=== PATIENT | male | born 2000 | race Caucasian/White ===

== ENCOUNTER 2022-08-29 23:15 | Outpatient (REF) | payer MEDICAID, SELFPAY ==
[2022-08-31 11:25] LABS: COVID-19 RT-PCR UVMMC Result Negative (Negative)
== END 2022-08-29 23:16 | disposition home or self-care (01) ==
LOC: LBN 23:15
PROVIDERS: Visit Provider Physician Assistant Medical
DX: Z20.822 Contact with and (suspected) exposure to COVID-19 (principal); B34.9 Viral infection, unspecified
CPT/HCPCS: U0003; 87070

== ENCOUNTER 2022-09-01 00:09 | Emergency (ER) | payer MEDICAID, SELFPAY ==
--- NOTE | 2022-09-01 00:30 | DI.RAD_ITS ---
Exam(s) XR PORTABLE CHEST AP EXAM: XR PORTABLE CHEST AP CLINICAL HISTORY: PUI, cough TECHNIQUE: 2D digital imaging was performed. COMPARISON: No exams were available for comparison FINDINGS: LUNGS: Clear. No pleural abnormality seen. HEART: Normal size. AORTA: Normal diameter. BONES: Unremarkable for age. Soft tissues: Unremarkable. IMPRESSION: No acute findings. DATA REPOSITORY: RADIATION DOSE DELIVERED:
--- NOTE | 2022-09-01 00:38 | ED.GENADUL_ITS ---
Discharge Plan Disposition Patient Disposition: Home Condition: Improving Discharge Details Clinical Impression: Influenza A Primary Care Provider: Margarita Mast ED Provider: Jasper Moon Home Meds and New Rx's Prescriptions: Continued cetirizine 10 MG tablet 10 mg PO DAILY Qty: 30 Rx Instructions: 1 tab po daily in the evening fluticasone propionate [Flonase Allergy Relief] 9.9 ML spray,suspension 1 spray NS DAILY PRNQty: 1 Discharge Instructions Instructions: Influenza (ED) Additional Instructions: Home to rest this evening. Small, frequent sips of fluids to maintain good hydration. Tylenol and ibuprofen as needed for pain. You may use the provided codeine-based cough syrup this evening. Return for any acute concern. Medical Decision Making This is a 22-year-old male who presents with 4 to 5 days of cough, congestion, fever, body ache. Was having some difficulty breathing at home. On exam the patient is oxygenating normally. His differential diagnosis includes viral syndrome, influenza, pneumonitis, bronchitis. Chest x-ray without acute disease. Patient improved following ibuprofen, oral fluids, and antitussive. He is positive for influenza A. He is outside the window for the use of Tamiflu. He is stable and appropriate discharge to home with conservative management in the outpatient setting. HPI General Mode of arrival: ambulatory . Date/Time Provider Initiated Documentation: 09/01/22 00:10 . Limitations to Documentation: no limitations . Information obtained by: patient . History of Present Illness 22 year old M presents to the emergency department with the chief complaint of Fever, cough, body ache, described as moderate, Quality is described as dull, and is localized to the chest. Patient reports no radiation. Patient started experiencing this day(s) and it has been intermittent. No relieving factors improve symptom(s), No exacerbating factors reported . Patient notes cough, fever/chills and shortness of breath; denies chest pain. Patient did receive the following treatments prior to arrival, other (Tylenol) Related Data Home Medications Medication Instructions Recorded Confirmed cetirizine 10 mg tablet 10 mg PO DAILY #30 tab-caps 05/09/16 09/01/22 fluticasone propionate 50 1 spray NS DAILY PRN ##1 05/09/16 09/01/22 mcg/actuation nasal spray,suspension (Flonase Allergy Relief) Allergies Allergy/AdvReac Type Severity Reaction Status Date / Time ENVIRONMENTAL ALLERGY AdvReac Mild Uncoded 09/01/22 00:45 Review of Systems Narrative: 6 systems reviewed and otherwise not negative PFSH All Active Problems (Updated 09/01/22 @ 01:42 by Jasper Moon MD) Influenza A (Acute) Esotropia (Acute) followed by optometry r eye 2/20 Healthy adult (Acute) Allergic rhinitis (Acute) Surgical History Appendectomy Family History Mother Healthy adult on routine physical examination Essential hypertension Father Diabetes Essential hypertension Heart disease Hyperlipidemia Other Essential hypertension MGM Hyperlipidemia MGM Myocardial infarction MGF Neoplasm maternal side Asthma maternal side, MGGF Social History Smoking/Tobacco Use Status: Never Second Hand Exposure: Yes (MOM'S BOYFRIEND) Smoking risk assessment performed?: Yes Alcohol Intake: current Alcohol type: beer Drug use: Never Substance use type: does not use Household members: family and other Details: MOM AND HER BOYFRIEND, BOYFRIENDS DAUGHTER AND HER KIDS Pets and animals: Yes Pets and animals: dog(s), iguana(s) and other Details: DUCKS, GEESE Do you feel safe at home: Yes Do you feel safe in your relationship?: Yes Exam Narrative Exam Narrative: GEN: awake, alert, oriented 3. Pleasant, well groomed, interactive. HEAD: Normocephalic, atraumatic ENT: Mucous membranes moist, oropharynx unremarkable, External ear exam unremarkable EYES: PERRL, EOMI NECK: Full ROM, no BLANKA, no menigismus CHEST/RESP: Nontender, diminished but clear bilaterally CARDIOVASCULAR: RRR, no murmur, rub mathieu. 2+ Rad pulse bilateral ABDOMEN: Soft, nontender, no mass. +Bowel sounds EXT: Full ROM, no edema, no rash Neuro: Grossly normal neurologic exam, conversant, interactive. Psych: Speech fluent, thoughts congruent, affect normal
[2022-09-01] MEDS: guaiFENesin/CODEINE PHOSPHATE 10 ML CUP PO ×2 (00:47→01:55)
[2022-09-01] MEDS: Ibuprofen 800 MG TAB PO (00:47)
[2022-09-01 00:48] VITALS: BP 145/81; PULSE 111; RESP 24; TEMP 38; O2SAT 97
--- NOTE | 2022-09-01 01:27 | DI.VRAD_ITS ---
PROCEDURE INFORMATION: Exam: XR Chest Exam date and time: 09/01/2022 12:46 AM Age: 22 years old Clinical indication: Shortness of breath TECHNIQUE: Imaging protocol: Radiologic exam of the chest. Views: 1 view. COMPARISON: No relevant prior studies available. FINDINGS: Lungs: Unremarkable. No consolidation. Pleural spaces: Unremarkable. No pleural effusion. No pneumothorax. Heart/Mediastinum: Unremarkable. No cardiomegaly. Bones/joints: Unremarkable. IMPRESSION: No acute findings. Dictated and Authenticated by: Garcia Grimaldo MD. Ordering:GEETA Hutchinson MD
[2022-09-01 01:29] LABS: COVID-19 PCR Negative (Negative); Influenza A PCR Positive (Negative); Influenza B PCR Negative (Negative); RSV PCR Negative (Negative)
[2022-09-01 01:37] LABS: Source Nasopharynx
[2022-09-01 01:55] VITALS: BP 122/58; PULSE 95; RESP 24; TEMP 37; O2SAT 96
== END 2022-09-01 01:59 | disposition home or self-care (01) ==
PROVIDERS: Emergency Provider Emergency Medicine; PCP Nurse Practitioner Family
DX: J10.1 Influenza due to other identified influenza virus with other respiratory manifestations (principal); Z20.822 Contact with and (suspected) exposure to COVID-19
CPT/HCPCS: 87637; 99283; 71045; 99284

== ENCOUNTER → 2024-05-15 22:17 | Emergency (ER) | payer MEDICAID, SELFPAY ==
[2024-05-15 22:21] VITALS: BP 159/116; PULSE 94; RESP 16; TEMP 36.3; O2SAT 98
--- NOTE | 2024-05-15 22:24 | ED.GENADUL_ITS ---
Discharge Plan Disposition Patient Disposition: Home Condition: Good Discharge Details Clinical Impression: Abscess of right axilla Primary Care Provider: Margarita Mast ED Provider: Tanvir Thomas Meds and New Rx's Prescriptions: New doxycycline hyclate 100 mg capsule 100 mg PO BID Qty: 20 0RF Discharge Instructions Instructions: Doxycycline Additional Instructions: You were seen in the ED for axillary pain and swelling. This may be the beginning stage of an abscess. At this point it does not warrant incision. Recommend hot compresses, ibuprofen, antibiotic as we discussed. Will refer you to the surgical clinic for follow-up, call on Friday. Return to ED for increased pain, swelling, fever, other concerns. Stand Alone Forms: Work Release Referrals: [facility] [Provider Group] - None HPI General Mode of arrival: ambulatory . Date/Time Provider Initiated Documentation: 05/15/24 22:24 . Limitations to Documentation: no limitations . Information obtained by: patient and RN notes reviewed . HPI Narrative: Patient presents to ED with right armpit pain and swelling. Patient reports that a couple days ago he noticed what he thought was just a small pimple. He has had what he describes as pimples in his axillary region on and off. Over the course of the last 24 hours the area has become more painful, little more swollen, larger and red. He has noticed a little bump in the posterior aspect of his axilla. He denies any fever. He denies feeling unwell otherwise. Denies any drug use, significant past medical history, medications, allergies. Related Data Home Medications ?Medication ?Instructions ?Recorded ?Confirmed doxycycline hyclate 100 mg capsule 100 mg PO BID #20 caps 05/15/24 Previous Rx's ?Medication ?Instructions ?Recorded doxycycline hyclate 100 mg capsule 100 mg PO BID #20 caps 05/15/24 Allergies Allergy/AdvReac Type Severity Reaction Status Date / Time ENVIRONMENTAL ALLERGY AdvReac Mild Unknown Uncoded 05/15/24 22:26 General [place]: 3 Review of Systems Narrative: Per HPI Exam Narrative Exam Narrative: Const: Obese male in NAD. VS per triage. HEENT: NC/AT. Normal facial exam. Neck: Supple. Trachea midline. Lungs: Normal respiratory effort. Neuro: A+O x 3. Normal speech, mentation, gait. Cranial nerves II - XII grossly intact. No gross motor or sensory deficit. Ext: No C/C/E. Skin: 8 to 10 mm x 3 to 4 mm erythematous slightly raised plaque lesion with central indentation. Very tender to touch. Not fluctuant at all. This is anteriorly located in the right axilla. Posteriorly there is a pea-sized firm and mildly tender mass. Medical Decision Making Patient presenting to ED with right axillary pain and redness. The firm tender mass posteriorly is most likely a lymph node. The lesion in the anterior axillary region may be an early abscess versus beginning stage of hidradenitis suppurativa. It is not amendable to I&D. Will start patient on doxycycline, warm compresses, ibuprofen and referred to surgical clinic, call on Friday for follow-up. Return precautions discussed, specifically increasing pain and swell ing which would suggest a developing abscess that may be better amendable to I&D. PFSH All Active Problems (Updated 05/15/24 @ 22:54 by Tanvir Thomas MD) Abscess of right axilla (Acute) Esotropia (Acute) followed by optometry r eye 11/04 Healthy adult (Acute) Allergic rhinitis (Acute) Surgical History Appendectomy Family History Mother Healthy adult on routine physical examination Essential hypertension Father Diabetes Essential hypertension Heart disease Hyperlipidemia Other Essential hypertension MGM Hyperlipidemia MGM Myocardial infarction MGF Neoplasm maternal side Asthma maternal side, MGGF Social History Smoking/Tobacco Use Status: Never Second Hand Exposure: Yes (MOM'S BOYFRIEND) Smoking risk assessment performed?: Yes Alcohol Intake: current Alcohol Intake frequency: a few times a week Alcohol type: beer Drug use: Never Substance use type: does not use Household members: family and other Details: MOM AND HER BOYFRIEND, BOYFRIENDS DAUGHTER AND HER KIDS Housing: apartment Pets and animals: Yes Pets and animals: dog(s), iguana(s) and other Details: DUCKS, GEESE Do you feel safe at home: Yes Do you feel safe in your relationship?: Yes
[2024-05-15 22:56] VITALS: BP 145/77; PULSE 92; RESP 20; TEMP 36.8; O2SAT 97
[2024-05-15] MEDS: Doxycycline Hyclate 100 MG CAP PO (23:08)
[2024-05-15] MEDS: Ibuprofen 600 MG TAB PO (23:08)
--- NOTE | 2024-05-16 19:44 | NUR.NOTE ---
Pt placed on care management referral list to establish primary care as soon as possible. Referral faxed to [facility].
== END | disposition home or self-care (01) ==
LOC: ER 22:55 → RED 23:10
PROVIDERS: Emergency Provider Emergency Medicine; PCP Nurse Practitioner Family
DX: L02.411 Cutaneous abscess of right axilla (principal)
CPT/HCPCS: 99283

== ENCOUNTER 2024-12-17 22:11 | Outpatient (REF) | payer SELFPAY | END 2024-12-17 22:12 | disposition home or self-care (01) | LOC: LBN 22:11 | PROVIDERS: PCP Nurse Practitioner Family; Visit Provider Physician Assistant Medical | DX: J02.9 Acute pharyngitis, unspecified (principal) | CPT/HCPCS: 87070 ==

== ENCOUNTER 2025-09-11 11:34 | Observation (INO) | payer SELFPAY ==
[2025-09-11] VITALS (9 sets, daily range): BP systolic 116–139; BP diastolic 63–88; PULSE 81–129; RESP 16–18; TEMP 36.4–38.3; O2SAT 96–100
--- NOTE | 2025-09-11 13:15 | DI.CT_ITS ---
Exam(s) CT ABDOMEN PELVIS W EXAM: CT ABDOMEN PELVIS W CLINICAL HISTORY: epigastric pain, intractable vomiting. TECHNIQUE: Imaging Protocol: Axial computed tomography images with coronal and sagittal reformatted images were created and reviewed CONTRAST MATERIAL: Intravenous: Omnipaque-350 100cc Oral: None COMPARISON: No exams were available for comparison FINDINGS: VISUALIZED LUNG BASES: No nodules nor pleural effusions evident. ABDOMEN: There is no ascites. LIVER: Liver is hypodense implying steatosis. There no discrete focal hepatic lesions evident. No dilated intrahepatic ducts. GALLBLADDER/BILIARY: No obvious gallbladder pathology. CBD is not dilated. PANCREAS: No evidence of pancreatic mass nor dilatation of the pancreatic duct. SPLEEN: The spleen is enlarged measuring 14.5 cm craniocaudal. There are no distinct focal splenic lesions. The splenic and portal veins are patent. ADRENALS: There are no significant adrenal masses. KIDNEYS:No cysts evident. No solid renal masses. No calculi nor hydronephrosis.. ABDOMINAL AORTA: Abdominal aorta is not enlarged. LYMPH NODES:There is no retroperitoneal nor paraaortic adenopathy. ABDOMINAL WALL: No evidence of significant anterior abdominal wall nor inguinal hernia. GI: There is fluid in the stomach and throughout the multiple small bowel loops. No distinct transition point. Fat halo sign noted in the terminal ileum. PELVIS: GI: Appendix is surgically absent. The large bowel also contains some fluid. There is no significant diverticular disease in the colon. LYMPH NODES: There is no intrapelvic nor inguinal adenopathy. REPRODUCTIVE: Prostate size upper normal. Seminal vesicles unremarkable. URINARY BLADDER: No calculi nor obvious masses evident OSSEOUS: No fractures and no significant osseous lesions. IMPRESSION: 1. Hepatic steatosis and mild splenomegaly. There are no specific focal lesions in the liver and spleen. 2. There is an enteritis pattern involving small and large bowel. No true bowel obstruction. No free air. No abscess. 3. The appendix is surgically absent. Report called by myself to ER provider 09/11/2025 at 3:45 p.m. RADIATION DOSE DELIVERED: 855.91mGy.cm Total DLP DATA REPOSITORY: All CT scans at this facility are submitted to the National Radiology Data Registry (NRDR) Dose Index Registry (DIR) with the [employer] (A[employer]). RADIATION OPTIMIZATION: All CT scans at this facility use at least one of these dose optimization techniques: automated exposure control; mA and/or kV adjustment per patient size (includes targeted exams where dose is matched to clinical indication); or iterative reconstruction.
--- NOTE | 2025-09-11 13:15 | RT.EKG_ITS ---
APPROVED REPORT Exam: Resting ECG Reason for Exam: upper ABD pain Patient Location: E HR:113 bpm ECG Measurements Heart Rate 113 AXIS VT 138 P 26 QRSd 85 QRS 38 QT 317 T -5 QTc 435 Conclusion Sinus tachycardia...rate> 99 No Occlusion MN
--- NOTE | 2025-09-11 13:15 | DI.RAD_ITS ---
Exam(s) XR CHEST 2V PA LATERAL EXAM: XR CHEST 2V PA LATERAL CLINICAL HISTORY: central chest pain; indigestion. TECHNIQUE: 2D digital imaging was performed. COMPARISON: CR,XR XR PORTABLE CHEST AP from 09/01/[address] ABDOMEN PELVIS W from 09/11/2025 FINDINGS: 2 views: Heart size is normal. The mediastinum is not widened. Lungs are clear. No infiltrates nor pleural effusions. Mildly distended stomach IMPRESSION: No acute pulmonary findings.Somewhat distended stomach. No free air DATA REPOSITORY: RADIATION DOSE DELIVERED:
[2025-09-11 13:38] LABS: Glucose Negative (Negative)
[2025-09-11 13:54] LABS: C & S Indicated? Yes
[2025-09-11] MEDS: Ketorolac 15 MG/ML VIAL IVP (13:57)
[2025-09-11] MEDS: Ondansetron 4 MG/2 ML VIAL IVP ×2 (13:57→20:08)
[2025-09-11] MEDS: ACETAMINOPHEN 1,000 MG/100 ML BAG 400 MG IVPB (13:58)
[2025-09-11 13:59] LABS: Abs Immature Grans 0.04 10^3/uL (0.0-0.06); HCT 51.8 % (40.0-50.0); HGB 17.5 g/dL (13.5-17.5); Immature Grans % 0.3 %; MCH 29.4 pg (27.0-33.0); MCHC 33.8 % (32.0-36.0); MCV 87 fL (80-95); MPV 11.6 fL (8.0-11.0); Platelet Count 163 10^3/uL (130-400); RBC 5.96 10^6/uL (4.36-5.78); RDW 12.5 % (11.8-14.1); RDW-SD 39.3 fL; WBC 13.46 10^3/uL (4.4-10.8)
--- NOTE | 2025-09-11 14:06 | ED.GENADUL_ITS ---
Discharge Plan Disposition Patient Disposition: Admit to [facility] Condition: Stable Discharge Details Clinical Impression: Sepsis, Urinary tract infection Primary Care Provider: Margarita Mast ED Provider: Alirio Stein Home Meds and New Rx's Prescriptions: No Action doxycycline hyclate 100 mg capsule 100 mg PO BID Qty: 20 0RF HPI General Date/Time Provider Initiated Documentation: 09/11/25 12:56 . HPI Narrative: 25 year-old male presents to ED today by POV/ambulating with a chief complaint of nausea and vomiting since this morning, nausea started at 2 AM last night and vomiting started around 6 AM this morning, he is unable to keep anything down. Quality described as upper abdominal pain, nausea vomiting and diarrhea, no radiation to overt fever endorses chills/sweats, denies shortness of breath or chest pain, endorses burning sensation, denies chronic indigestion, denies black or bloody stools, denies coffee-ground emesis or hematemesis. Severity is described as severe. Palliating factors include nothing specific attempted. Provoking factors include nothing specific. Patient not anticoagulated. Related Data Home Medications ?Medication ?Instructions ?Recorded ?Confirmed doxycycline hyclate 100 mg capsule 100 mg PO BID #20 c aps 05/15/24 05/23/24 Previous Rx's ?Medication ?Instructions ?Recorded doxycycline hyclate 100 mg capsule 100 mg PO BID #20 c aps 05/15/24 Allergies Allergy/AdvReac Type Severity Reaction Status Date / Time ENVIRONMENTAL ALLERGY AdvReac Mild Unknown Uncoded 09/11/25 12:16 General Stated Complaint: Nausea/Vomit/Diar [place]: 3 Review of Systems All systems reviewed & are unremarkable except as noted in HPI and below Exam Narrative Exam Narrative: GENERAL APPEARANCE: Well-nourished, toxic, awake and alert, atraumatic, moderate acute distress. SKIN: Warm, pale, diaphoretic, intact, without rashes/lesions/ulcerations. HEAD: Normocephalic, atraumatic, normal hair distribution for gender/age. EYES: Normal conjunctiva, no exudates on lids/lashes. ENT: Nares patent, no circumoral cyanosis, no facial swelling NECK: Supple, trachea midline, painless cervical ROM. LUNGS/CHEST: Lungs CTA bilaterally-no rhonchi/rales/wheeze diffusely, non- labored respirations, normal A/P diameter, symmetrical expansion, no chest wall deformity HEART (CV/PV): Regular rate and rhythm without murmur, no peripheral edema, no JVD. ABDOMEN: Soft, non-distended, no guarding, exquisite epigastric and right upper quadrant tenderness with positive Emmanuel sign, no CVA tenderness percussion bilaterally, no lower abdominal tenderness. MSK: Normal ROM, no swelling/deformity to bilateral UEs or LEs, moving all extremities without weakness, no cyanosis, spine midline without tenderness, normal curvature. NEURO: Mental Status AAOx4 - alert to person, place, time, events No facial droop, no forehead involvement. Motor: No focal weakness Sensory: sensation intact to light touch globally. Gait normal: patient ambulated without ataxia into ED room. PSYCH: euthymic, cooperative, pleasant, appropriate speech Course Vital Signs Vital signs: Vital Signs Temperature 36.8 C 09/11/25 12:11 Pulse 129 H 09/11/25 12:11 Respiratory Rate 18 09/11/25 12:11 Blood Pressure 133/88 09/11/25 12:11 Pulse Oximetry 96 09/11/25 12:11 Temperature 36.8 C 09/11/25 12:15 Temperature Source Oral 09/11/25 12:15 Pulse 129 H 09/11/25 12:15 Respiratory Rate 18 09/11/25 12:15 Blood Pressure 133/88 09/11/25 12:15 Blood Pressure Position Sitting 09/11/25 12:15 Pulse Oximetry 96 09/11/25 12:15 Oxygen Delivery Method Room Air 09/11/25 12:11 Oxygen Flow Rate 0 09/11/25 12:11 Pain Level 7 09/11/25 12:15 Lab/Test Results Lab/Test Results: 09/11/25 12:20 Urine - Reflex from Ua Urine Culture - Pending 09/11/25 13:21 Blood Blood Culture - Pending 09/11/25 13:21 Blood Blood Culture - Pending Laboratory Tests Range/Units 09/11/25 09/11/25 12:20 13:50 WBC (4.4-10.8) 10^3/uL 13.46 H RBC (4.36-5.78) 10^6/uL 5.96 H Hgb (13.5-17.5) g/dL 17.5 Hct (40.0-50.0) % 51.8 H MCV (80-95) fL 87 MCH (27.0-33.0) pg 29.4 MCHC (32.0-36.0) % 33.8 RDW (11.8-14.1) % 12.5 Plt Count (130-400) 10^3/uL 163 MPV (8.0-11.0) fL 11.6 H Immature Gran % % 0.3 Neutrophils % % 93.7 Lymphocytes % % 1.7 Monocytes % % 4.0 Eosinophils % % 0.1 Basophils % % 0.2 Nucleated RBC % (0.0-0.3) % 0.0 Absolute Neutrophils (1.2-6.7) 10^3/uL 12.61 H Absolute Lymphocytes (1.2-3.4) 10^3/uL 0.23 L Absolute Monocytes (0.1-0.8) 10^3/uL 0.54 Absolute Eosinophils (0.0-0.7) 10^3/uL 0.01 Absolute Basophils (0.0-0.2) 10^3/uL 0.03 VBG Lactate Cancelled Sodium Cancelled Potassium Cancelled Chloride Cancelled Carbon Dioxide Cancelled Anion Gap Cancelled BUN Cancelled Creatinine Cancelled Est GFR (CKD-EPI 2020) Cancelled Glucose Cancelled Calcium Cancelled Magnesium Cancelled Total Bilirubin Cancelled AST Cancelled ALT Cancelled Alkaline Phosphatase Cancelled Troponin I Cancelled Total Protein Cancelled Albumin Cancelled Lipase Cancelled Urine Color (Yellow) [place] Urine Clarity (Clear) Cloudy Urine pH (5-8) 5.5 Ur Specific [place] (1.005-1.025) >= 1.030 H Urine Protein (Neg-Trace) mg/dL >=300 H Urine Ketones (Negative) mg/dL 80 H Urine Blood (Negative) Small H Urine Nitrite (Negative) Positive H Urine Bilirubin (Negative) Moderate H Urine Urobilinogen (Up to 0.2) mg/dL 0.2 Ur Leukocyte Esterase (Negative) Negative Urine RBC Not Applicable Urine WBC Not Applicable Ur Epithelial Cells Not Applicable Urine Crystals (Negative) HPF Many Amorphous Urine Bacteria Not Applicable Urine Mucus Not Applicable Ur Culture Indicated? Yes Urine Glucose (Negative) mg/dL Negative Medical Decision Making This dictation utilizes [id number] dictation software and may contain unedited grammatical errors. 25 year-old male presents to ED today by POV/ambulating with a chief complaint of nausea and vomiting since this morning, nausea started at 2 AM last night and vomiting started around 6 AM this morning, he is unable to keep anything down. Quality described as upper abdominal pain, nausea vomiting and diarrhea, no radiation to overt fever endorses chills/sweats, denies shortness of breath or chest pain, endorses burning sensation, denies chronic indigestion, denies black or bloody stools, denies coffee-ground emesis or hematemesis. Severity is described as severe. Palliating factors include nothing specific attempted. Provoking factors include nothing specific. Patients' medical history: Status post appendectomy, allergic rhinitis. Family and social history: Denies any known toxic food ingestion, denies heavy EtOH use or recent EtOH use, denies IVDU, no recent travel or sick contacts. Pertinent exam findings / vital signs include epigastric tenderness with Emmanule sign, no rebound tenderness, no lower abdominal tenderness, no CVA tenderness to percussion bilaterally, benign cardiopulmonary exam, tachycardic on arrival and diaphoretic. Differential / pathologies of concern include sepsis, enteritis, biliary colic, UTI, pyelonephritis, SBO, colitis, gastritis. Diagnostic studies of: - CBC, CMP, lactate, lipase, magnesium, UA, blood cultures, CT ABD/pelvis with contrast, x-ray chest, EKG. - EKG shows sinus tachycardia at 113 bpm with P waves followed by narrow complex QRS with normal axis, poor R wave progression, no T wave abnormalities, no ST changes, normal QT QTc - CBC shows leukocytosis with white count of 13.46 - Lactate 3.1 - CMP with mildly elevated bilirubin at 2.2, reflexed to direct bilirubin which is 0.7 - Magnesium lower limit of normal at 1.6 - Troponin negative - Lipase within normal limits - UA shows UTI with positive nitrates, the micro has interference, culture pending - Blood cultures pending - X-ray chest shows no acute findings and a distended stomach - CT of the abdomen and pelvis shows hepatic steatosis and mild splenomegaly and enteritis, no surgical concerns Interventions of: -1 g IV Tylenol, 50 mg IV Toradol, 4 mg IV Zofran, 1 L IVF NS, 2 g IV ceftriaxone. -Discussed with hospitalist Dr. Hussein - accepted for admission at 1600. ED Course/Assessment/Plan: 25-year-old male presents with abdominal complaint of nausea vomiting and diarrhea with upper abdominal pain and burning sensation, he has tachycardia, leukocytosis and a lactic acidosis indicating likely sepsis, source of infection is a UTI he also has enteritis pattern, he did receive IV ceftriaxone here, his vitals did normalize with fluids Tylenol Toradol and Zofran and he has no intractable vomiting, he has hepatic steatosis with mild elevation of bilirubin at 2.2 and direct bilirubin of 0.7 not convincing for severe obstructive pattern. Patient will be admitted for sepsis with source of urinary tract infection given ceftriaxone Disposition of Sepsis, Urinary Tract Infection. Patient verbalized understanding of the plan and return to ED criteria and engaged in shared decision making. Medical Records Medical records reviewed: Yes I reviewed the patient's medical records. Imaging Data Radiologic Study: Attestation: I personally reviewed and interpreted this imaging study as follows: Imaging: X-Ray Radiologist's impression: EXAM: XR CHEST 2V PA LATERAL CLINICAL HISTORY: central chest pain; indigestion. TECHNIQUE: 2D digital imaging was performed. COMPARISON: CR,XR XR PORTABLE CHEST AP from 09/01/[address] ABDOMEN PELVIS W from 09/11/2025 FINDINGS: 2 views: Heart size is normal. The mediastinum is not widened. Lungs are clear. No infiltrates nor pleural effusions. Mildly distended stomach IMPRESSION: No acute pulmonary findings.Somewhat distended stomach. No free air Radiologic Study #2: Attestation: I personally reviewed and interpreted this imaging study as follows: Imaging: CT Scan Radiologist's impression: EXAM: CT ABDOMEN PELVIS W CLINICAL HISTORY: epigastric pain, intractable vomiting. TECHNIQUE: Imaging Protocol: Axial computed tomography images with coronal and sagittal reformatted images were created and reviewed CONTRAST MATERIAL: Intravenous: Omnipaque-350 100cc Oral: None COMPARISON: No exams were available for comparison FINDINGS: VISUALIZED LUNG BASES: No nodules nor pleural effusions evident. ABDOMEN: There is no ascites. LIVER: Liver is hypodense implying steatosis. There no discrete focal hepatic lesions evident. No dilated intrahepatic ducts. GALLBLADDER/BILIARY: No obvious gallbladder pathology. CBD is not dilated. PANCREAS: No evidence of pancreatic mass nor dilatation of the pancreatic duct. SPLEEN: The spleen is enlarged measuring 14.5 cm craniocaudal. There are no distinct focal splenic lesions. The splenic and portal veins are patent. ADRENALS: There are no significant adrenal masses. KIDNEYS:No cysts evident. No solid renal masses. No calculi nor hydronephrosis.. ABDOMINAL AORTA: Abdominal aorta is not enlarged. LYMPH NODES:There is no retroperitoneal nor paraaortic adenopathy. ABDOMINAL WALL: No evidence of significant anterior abdominal wall nor inguinal hernia. GI: There is fluid in the stomach and throughout the multiple small bowel loops. No distinct transition point. Fat halo sign noted in the terminal ileum. PELVIS: GI: Appendix is surgically absent. The large bowel also contains some fluid. There is no significant diverticular disease in the colon. LYMPH NODES: There is no intrapelvic nor inguinal adenopathy. REPRODUCTIVE: Prostate size upper normal. Seminal vesicles unremarkable. URINARY BLADDER: No calculi nor obvious masses evident OSSEOUS: No fractures and no significant osseous lesions. IMPRESSION: 1. Hepatic steatosis and mild splenomegaly. There are no specific focal lesions in the liver and spleen. 2. There is an enteritis pattern involving small and large bowel. No true bowel obstruction. No free air. No abscess. 3. The appendix is surgically absent. Report called by myself to ER provider 09/11/2025 at 3:45 p.m. Lab Data Lab results reviewed: Yes I reviewed the patient's lab results. Labs: 09/11/25 14:10 Blood Blood Culture - Pending 09/11/25 14:21 Blood Blood Culture - Pending 09/11/25 12:20 Urine - Reflex from Ua Urine Culture - Pending Laboratory Tests Range/Units 09/11/25 09/11/25 09/11/25 12:20 13:50 14:21 WBC (4.4-10.8) 10^3/uL 13.46 H RBC (4.36-5.78) 10^6/uL 5.96 H Hgb (13.5-17.5) g/dL 17.5 Hct (40.0-50.0) % 51.8 H MCV (80-95) fL 87 MCH (27.0-33.0) pg 29.4 MCHC (32.0-36.0) % 33.8 RDW (11.8-14.1) % 12.5 Plt Count (130-400) 10^3/uL 163 MPV (8.0-11.0) fL 11.6 H Immature Gran % % 0.3 Neutrophils % % 93.7 Lymphocytes % % 1.7 Monocytes % % 4.0 Eosinophils % % 0.1 Basophils % % 0.2 Nucleated RBC % (0.0-0.3) % 0.0 Absolute Neutrophils (1.2-6.7) 10^3/uL 12.61 H Absolute Lymphocytes (1.2-3.4) 10^3/uL 0.23 L Absolute Monocytes (0.1-0.8) 10^3/uL 0.54 Absolute Eosinophils (0.0-0.7) 10^3/uL 0.01 Absolute Basophils (0.0-0.2) 10^3/uL 0.03 VBG Lactate Cancelled 3.1 H* Sodium Cancelled 139 Potassium Cancelled 4.1 Chloride Cancelled 105 Carbon Dioxide Cancelled 23.9 Anion Gap Cancelled 10.1 BUN Cancelled 16 Creatinine Cancelled 0.91 Est GFR (CKD-EPI 2020) Cancelled 101.84 Glucose Cancelled 155 H Calcium Cancelled 9.9 Magnesium Cancelled 1.6 Total Bilirubin Cancelled 2.2 H AST Cancelled 31 ALT Cancelled 57 H Alkaline Phosphatase Cancelled 86 Troponin I Cancelled < 3 Total Protein Cancelled 8.7 H Albumin Cancelled 5.0 Lipase Cancelled 30 Urine Color (Yellow) [place] Urine Clarity (Clear) Cloudy Urine pH (5-8) 5.5 Ur Specific [place] (1.005-1.025) >= 1.030 H Urine Protein (Neg-Trace) mg/dL >=300 H Urine Ketones (Negative) mg/dL 80 H Urine Blood (Negative) Small H Urine Nitrite (Negative) Positive H Urine Bilirubin (Negative) Moderate H Urine Urobilinogen (Up to 0.2) mg/dL 0.2 Ur Leukocyte Esterase (Negative) Negative Urine RBC Not Applicable Urine WBC Not Applicable Ur Epithelial Cells Not Applicable Urine Crystals (Negative) HPF Many Amorphous Urine Bacteria Not Applicable Urine Mucus Not Applicable Ur Culture Indicated? Yes Urine Glucose (Negative) mg/dL Negative PFSH All Active Problems (Updated 09/11/25 @ 16:40 by RUPERTO Blank) Urinary tract infection (Acute) Sepsis (Acute) Esotropia (Acute) followed by optometry r eye 11/04 Healthy adult (Acute) Allergic rhinitis (Acute) Surgical History Appendectomy Family History Mother Healthy adult on routine physical examination Essential hypertension Father Diabetes Essential hypertension Heart disease Hyperlipidemia Other Essential hypertension MGM Hyperlipidemia MGM Myocardial infarction MGF Neoplasm maternal side Asthma maternal side, MGGF Social History Smoking/Tobacco Use Status: Never Second Hand Exposure: Yes (MOM'S BOYFRIEND) Smoking risk assessment performed?: Yes Alcohol Intake: current Alcohol Intake frequency: a few times a week Alcohol type: beer Drug use: Never Substance use type: does not use Household members: family and other Details: MOM AND HER BOYFRIEND, BOYFRIENDS DAUGHTER AND HER KIDS Housing: apartment Pets and animals: Yes Pets and animals: dog(s), iguana(s) and other Details: DUCKS, GEESE Do you feel safe at home: Yes Do you feel safe in your relationship?: Yes PAWSS Have you Been Recently Intoxicated or Drunk Within the Last 30 days?: No Have you Ever Experienced Previous Episodes of Alcohol Withdrawal?: No Have you ever Experienced Withdrawal Seizures?: No Have you ever Experienced Delirium Tremens(DT)s?: No Have you ever undergone Alcohol Rehabilitation Treatment (i.e, inpt ot outpatient treatment programs)?: No Have you ever Experienced Blackouts?: No Have you ever Combined Alcohol with other Downers within the last 90 days?: No Have you ever Combined Alcohol with any other Substance of Abuse during the last 90 days?: No Positive Blood Alcohol level on Presentation? [PCS.BAL]: No Evidence of Increased Autonomic Activity (i.e. HR>120, tremor, sweating, agitation, nausea)?: No Result: 0
[2025-09-11] MEDS: Normal Saline Flush 10 ML SYR IVP (14:39)
[2025-09-11] MEDS: Normal Saline - Diluent 50 ML VIAL IJ (14:39)
[2025-09-11] MEDS: Omnipaque 350 MG/ML 100 ML BTL IJ (14:39)
[2025-09-11 14:55] LABS: ALT 57 U/L (10-49); AST 31 U/L (<34); Albumin 5.0 g/dL (3.2-5.0); Alkaline Phosphatase 86 U/L (46-116); Anion Gap 10.1 mmol/L (3-11); BUN 16 mg/dL (9-23); Bilirubin, Total 2.2 mg/dL (0.2-1.2); CO2 23.9 mmol/L (20.0-31.0); Calcium 9.9 mg/dL (8.3-10.6); Chloride 105 mmol/L (98-107); Glucose 155 mg/dL (74-106); Lipase 30 U/L (<53); Magnesium 1.6 mg/dL (1.6-2.6); Potassium 4.1 mmol/L (3.5-5.1); Sodium 139 mmol/L (136-145); Total Protein 8.7 g/dL (5.7-8.2)
[2025-09-11 14:58] LABS: Troponin I < 3 ng/L (<54)
[2025-09-11] MEDS: cefTRIAXone 2 GM/50 ML BAG IVPB (15:05)
[2025-09-11] MEDS: Normal Saline 1,000 ML 1000 ML IV (15:05)
[2025-09-11 15:39] LABS: Bilirubin, Direct 0.7 mg/dL (<=0.3)
--- NOTE | 2025-09-11 17:21 | W.PM.HP.N ---
Date of service: 09/11/25 Time of Service: 17:00 Assessment and Plan Assessment and plan (1) Hypovolemia dehydration: Status: Acute Assessment and plan: Volume depletion due to nausea/vomiting Protein and ketones in urine, likely developing KEYANA Fluid boluses given in ED, will continue maintenance LR Anticipate improvement in 1-2 nights (2) Enteritis: Status: Acute Assessment and plan: More likely viral enteritis than bacterial infection given timing of onset Diet as tolerated (3) Abnormal urinalysis: Status: Acute Assessment and plan: UA suggestive of dehydration, possible UTI OK to continue ceftriaxone pending urine culture given severity of symptoms History of Present Illness History of Present Illness Chief Complaint: nausea and vomiting Narrative: Duran Cerda is a 25 year old man presenting September 11 after 12 hours of nausea and vomiting. He has been unable to tolerate any PO intake on day of presentation. He has abdominal pain that is above the navel, hurts when he vomits. He does not recall being around anyone who is sick. No chest pain, no SOB. In the ED he was tachycardic HR 129, vitals otherwise unremarkable. EKG with sinus tachycardia. CT abdomen/pelvis showing hepatic steatosis and mild splenomegaly, likely enteritis, absent appendix. CXR without pulmonary disease, stomach is distended. Neutrophilic leukocytosis 13.46. Lactic acidosis 3.1. Elevated glucose 155. Elevated bilirubin, predominantly indirect. Urine with heavy protein, ketones, nitrites, sent for culture. He was given anti-emetics and non-narcotic pain medicine, IV fluids, and started on ceftriaxone. PMH includes obesity BMI 41.6. PFSH All Active Problems (Updated 09/11/25 @ 21:07 by Anthony Hussein MD) Hypovolemia dehydration (Acute) Abnormal urinalysis (Acute) Enteritis (Acute) Urinary tract infection (Acute) Sepsis (Acute) Esotropia (Acute) followed by optometry r eye 11/04 Healthy adult (Acute) Allergic rhinitis (Acute) Surgical History Appendectomy Family History Mother Healthy adult on routine physical examination Essential hypertension Father Diabetes Essential hypertension Heart disease Hyperlipidemia Other Essential hypertension MGM Hyperlipidemia MGM Myocardial infarction MGF Neoplasm maternal side Asthma maternal side, MGGF Social History Smoking/Tobacco Use Status: Never Second Hand Exposure: Yes (MOM'S BOYFRIEND) Smoking risk assessment performed?: Yes Alcohol Intake: current Alcohol Intake frequency: a few times a week Alcohol type: beer Drug use: Never Substance use type: does not use Household members: family and other Details: MOM AND HER BOYFRIEND, BOYFRIENDS DAUGHTER AND HER KIDS Housing: apartment Pets and animals: Yes Pets and animals: dog(s), iguana(s) and other Details: DUCKS, GEESE Do you feel safe at home: Yes Do you feel safe in your relationship?: Yes Meds Allergies and Home Medications Allergies Allergy/AdvReac Type Severity Reaction Status Date / Time ENVIRONMENTAL ALLERGY AdvReac Mild Unknown Uncoded 09/11/25 12:16 Exam Narrative Exam Narrative: General: This is a pleasant, obese man in no distress HEENT: Normocephalic, atraumatic CV: RRR Resp: CTAB Abd: severe pain with any upper abdomen palpation, no CVAT MSK: voluntary motion x4 Neuro: awake, alert, no focal deficits Results Labs 09/11/25 13:50 09/11/25 14:21 Labs: Laboratory Results - last 24 hr 09/11/25 09/11/25 09/11/25 12:20 13:50 14:21 WBC 13.46 H RBC 5.96 H Hgb 17.5 Hct 51.8 H MCV 87 MCH 29.4 MCHC 33.8 RDW 12.5 Plt Count 163 MPV 11.6 H Immature Gran % 0.3 Neutrophils % 93.7 Lymphocytes % 1.7 Monocytes % 4.0 Eosinophils % 0.1 Basophils % 0.2 Nucleated RBC % 0.0 Absolute Neutrophils 12.61 H Absolute Lymphocytes 0.23 L Absolute Monocytes 0.54 Absolute Eosinophils 0.01 Absolute Basophils 0.03 VBG Lactate Cancelled 3.1 H* Sodium Cancelled 139 Potassium Cancelled 4.1 Chloride Cancelled 105 Carbon Dioxide Cancelled 23.9 Anion Gap Cancelled 10.1 BUN Cancelled 16 Creatinine Cancelled 0.91 Est GFR (CKD-EPI 2020) Cancelled 101.84 Glucose Cancelled 155 H Calcium Cancelled 9.9 Magnesium Cancelled 1.6 Total Bilirubin Cancelled 2.2 H Conjugated Bilirubin 0.7 H AST Cancelled 31 ALT Cancelled 57 H Alkaline Phosphatase Cancelled 86 Troponin I Cancelled < 3 Total Protein Cancelled 8.7 H Albumin Cancelled 5.0 Lipase Cancelled 30 Urine Color [place] Urine Clarity Cloudy Urine pH 5.5 Ur Specific [place] >= 1.030 H Urine Protein >=300 H Urine Ketones 80 H Urine Blood Small H Urine Nitrite Positive H Urine Bilirubin Moderate H Urine Urobilinogen 0.2 Ur Leukocyte Esterase Negative Urine RBC Not Applicable Urine WBC Not Applicable Ur Epithelial Cells Not Applicable Urine Crystals Many Amorphous Urine Bacteria Not Applicable Urine Mucus Not Applicable Ur Culture Indicated? Yes Urine Glucose Negative Last Vital Signs Temp 36.7 C 09/11/25 17:02 Pulse 90 09/11/25 17:02 Resp 16 09/11/25 14:05 BP 129/76 09/11/25 17:02 Pulse Ox 98 09/11/25 17:02 VTE Prohylaxis Risk Level: Low Risk Contraindications: None Prophylaxis: Patient ambulatory PAWSS Have you Been Recently Intoxicated or Drunk Within the Last 30 days?: No Have you Ever Experienced Previous Episodes of Alcohol Withdrawal?: No Have you ever Experienced Withdrawal Seizures?: No Have you ever Experienced Delirium Tremens(DT)s?: No Have you ever undergone Alcohol Rehabilitation Treatment (i.e, inpt ot outpatient treatment programs)?: No Have you ever Experienced Blackouts?: No Have you ever Combined Alcohol with other Downers within the last 90 days?: No Have you ever Combined Alcohol with any other Substance of Abuse during the last 90 days?: No Positive Blood Alcohol level on Presentation? [PCS.BAL]: No Evidence of Increased Autonomic Activity (i.e. HR>120, tremor, sweating, agitation, nausea)?: No Result: 0 Time Spent Time spent with Patient: 40-54 minutes Time was spent: preparing to see the patient(eg.review tests), obtaining and/or reviewing separately otained hiistory, ordering medications,tests, procedures, referring, communicating with other health before and after school daycare worker, indepentently interpreting results, counseling the patient and care coordination
[2025-09-11] MEDS: Ondansetron O.D.T. 4 MG TABEF PO (17:42)
[2025-09-11] MEDS: Acetaminophen 325 MG TAB 650 MG PO (20:08)
[2025-09-11 21:15] LABS: Cannabinoids THC Negative (Negative)
[2025-09-11] MEDS: Lactated Ringers 1,000 ML 150 ML IV (21:20)
[2025-09-12] MEDS: Lactated Ringers 1,000 ML 150 ML IV (03:43)
[2025-09-12 03:47] VITALS: PULSE 84; TEMP 36.5
[2025-09-12 06:55] LABS: Abs Immature Grans 0.03 10^3/uL (0.0-0.06); HCT 44.7 % (40.0-50.0); HGB 14.7 g/dL (13.5-17.5); Immature Grans % 0.4 %; MCH 28.5 pg (27.0-33.0); MCHC 32.9 % (32.0-36.0); MCV 87 fL (80-95); MPV 10.5 fL (8.0-11.0); Platelet Count 175 10^3/uL (130-400); RBC 5.16 10^6/uL (4.36-5.78); RDW 12.6 % (11.8-14.1); RDW-SD 40.1 fL; WBC 6.71 10^3/uL (4.4-10.8)
[2025-09-12 07:15] LABS: ALT 42 U/L (10-49); AST 27 U/L (<34); Albumin 4.2 g/dL (3.2-5.0); Alkaline Phosphatase 69 U/L (46-116); Anion Gap 7.6 mmol/L (3-11); BUN 12 mg/dL (9-23); Bilirubin, Total 1.8 mg/dL (0.2-1.2); CO2 27.4 mmol/L (20.0-31.0); Calcium 8.8 mg/dL (8.3-10.6); Chloride 106 mmol/L (98-107); Glucose 82 mg/dL (74-106); Magnesium 1.7 mg/dL (1.6-2.6); Potassium 3.5 mmol/L (3.5-5.1); Sodium 141 mmol/L (136-145); Total Protein 7.3 g/dL (5.7-8.2)
[2025-09-12 07:39] VITALS: BP 128/75; PULSE 84; RESP 17; TEMP 36.6; O2SAT 98
--- NOTE | 2025-09-12 08:26 | W.PC.ACHO ---
Registration Status: ADM ALESSIA Primary Language: Preferred Language: Cymro ED Information & Data Chief Complaint Nausea/Vomit/Diar 09/11/25 14:06 Triage Note patient state he got up at 09/11/25 12:11 2am this morning and he has been nausea, vomiting and diarrhea since this morning. patient state he is unable to keep anything down into his stomach. Reported having abdominal pain as well (Last Reviewed 05/23/24 @ 14:24 by Val Flores DO) Appendectomy Most Recent Vital Signs Temperature 36.6 C 09/12/25 07:39 Temperature Source Temporal Artery Scan 09/12/25 07:39 Pulse 84 09/12/25 07:39 Pulse Rhythm Regular 09/11/25 17:30 Respiratory Rate 17 09/12/25 07:39 Respiratory Effort Normal 09/11/25 17:30 Respiratory Depth Normal 09/11/25 17:30 Respiratory Pattern Normal 09/11/25 17:30 Blood Pressure 128/75 09/12/25 07:39 Blood Pressure Mean 92 09/12/25 07:39 Blood Pressure Position Sitting 09/11/25 12:15 Pulse Oximetry 98 09/12/25 07:39 Oxygen Delivery Method Room Air 09/12/25 07:39 Oxygen Flow Rate 0 09/12/25 07:39 Pain Level 0 09/12/25 07:39 Allergies ENVIRONMENTAL ALLERGY Adverse Reaction (Mild, Uncoded 09/11/25 12:16) Unknown Active Medications Generic Name Dose Route Start Last Admin Trade Name Freq PRN Reason Stop Dose Admin Acetaminophen 650 mg 09/11/25 16:53 09/11/25 20:08 Acetaminophen 325 Mg Tab PO 650 mg Q4H PRN PRN Administration Ringer's Solution 1,000 mls @ 150 mls/hr 09/11/25 21:15 09/12/25 03:43 IV 150 mls/hr INFUSION LUDIN Administration Iohexol 100 ml 09/11/25 14:45 09/11/25 14:39 Omnipaque 350 Mg/Ml 100 Ml Btl IJ 10/11/25 23:59 100 ml DIRECTED LUDIN Administration Ondansetron HCl 4 mg 09/11/25 17:34 09/11/25 20:08 Ondansetron 4 Mg/2 Ml Vial IVP 4 mg Q6H PRN PRN Administration Sodium Chloride 0 ml 09/11/25 14:38 09/11/25 14:39 Normal Saline Flush 10 Ml Syr IVP 10 ml PRN PRN Administration Sodium Chloride 50 ml 09/11/25 14:45 09/11/25 14:39 Normal Saline - Diluent 50 Ml Vial IJ 50 ml DIRECTED LUDIN Administration IV IV Catheter Type [Right Saline Lock Antecubital] IV Catheter Gauge [Right 20 Antecubital] Diagnostics 09/12/25 09/11/25 09/11/25 Range/Units 06:23 14:21 13:50 WBC 6.71 13.46 H (4.4-10.8) 10^3/uL RBC 5.16 5.96 H (4.36-5.78) 10^6/uL Hgb 14.7 D 17.5 (13.5-17.5) g/dL Hct 44.7 51.8 H (40.0-50.0) % MCV 87 87 (80-95) fL MCH 28.5 29.4 (27.0-33.0) pg MCHC 32.9 33.8 (32.0-36.0) % RDW 12.6 12.5 (11.8-14.1) % Plt Count 175 163 (130-400) 10^3/uL MPV 10.5 11.6 H (8.0-11.0) fL Immature Gran % 0.4 0.3 % Neutrophils % 73.1 93.7 % Lymphocytes % 14.5 1.7 % Monocytes % 10.9 4.0 % Eosinophils % 0.7 0.1 % Basophils % 0.4 0.2 % Nucleated RBC % 0.0 0.0 (0.0-0.3) % Absolute Neutrophils 4.90 12.61 H (1.2-6.7) 10^3/uL Absolute Lymphocytes 0.97 L 0.23 L (1.2-3.4) 10^3/uL Absolute Monocytes 0.73 0.54 (0.1-0.8) 10^3/uL Absolute Eosinophils 0.05 0.01 (0.0-0.7) 10^3/uL Absolute Basophils 0.03 0.03 (0.0-0.2) 10^3/uL VBG Lactate 3.1 H* Cancelled Sodium 141 139 Cancelled Potassium 3.5 4.1 Cancelled Chloride 106 105 Cancelled Carbon Dioxide 27.4 23.9 Cancelled Anion Gap 7.6 10.1 Cancelled BUN 12 16 Cancelled Creatinine 0.93 0.91 Cancelled Est GFR (CKD-EPI 2020) 99.31 101.84 Cancelled Glucose 82 155 H Cancelled Calcium 8.8 9.9 Cancelled Magnesium 1.7 1.6 Cancelled Total Bilirubin 1.8 H 2.2 H Cancelled Conjugated Bilirubin 0.7 H (<=0.3) mg/dL AST 27 31 Cancelled ALT 42 57 H Cancelled Alkaline Phosphatase 69 86 Cancelled Troponin I < 3 Cancelled Total Protein 7.3 8.7 H Cancelled Albumin 4.2 5.0 Cancelled Lipase 30 Cancelled Urine Color (Yellow) Urine Clarity (Clear) Urine pH (5-8) Ur Specific [place] (1.005-1.025) Urine Protein (Neg-Trace) mg/dL Urine Ketones (Negative) mg/dL Urine Blood (Negative) Urine Nitrite (Negative) Urine Bilirubin (Negative) Urine Urobilinogen (Up to 0.2) mg/dL Ur Leukocyte Esterase (Negative) Urine RBC Urine WBC Ur Epithelial Cells Urine Crystals (Negative) HPF Urine Bacteria Urine Mucus Ur Culture Indicated? Urine Glucose (Negative) mg/dL Urine Opiates Screen (Negative) Urine Methadone Screen (Negative) Ur Barbiturates Screen (Negative) Ur Tricyclics Screen (Negative) Ur Amphetamines Screen (Negative) U Benzodiazepines Scrn (Negative) Urine Cocaine Screen (Negative) U Cannabinoids Screen (Negative) 09/11/25 Range/Units 12:20 WBC (4.4-10.8) 10^3/uL RBC (4.36-5.78) 10^6/uL Hgb (13.5-17.5) g/dL Hct (40.0-50.0) % MCV (80-95) fL MCH (27.0-33.0) pg MCHC (32.0-36.0) % RDW (11.8-14.1) % Plt Count (130-400) 10^3/uL MPV (8.0-11.0) fL Immature Gran % % Neutrophils % % Lymphocytes % % Monocytes % % Eosinophils % % Basophils % % Nucleated RBC % (0.0-0.3) % Absolute Neutrophils (1.2-6.7) 10^3/uL Absolute Lymphocytes (1.2-3.4) 10^3/uL Absolute Monocytes (0.1-0.8) 10^3/uL Absolute Eosinophils (0.0-0.7) 10^3/uL Absolute Basophils (0.0-0.2) 10^3/uL VBG Lactate Sodium Potassium Chloride Carbon Dioxide Anion Gap BUN Creatinine Est GFR (CKD-EPI 2020) Glucose Calcium Magnesium Total Bilirubin Conjugated Bilirubin (<=0.3) mg/dL AST ALT Alkaline Phosphatase Troponin I Total Protein Albumin Lipase Urine Color [place] (Yellow) Urine Clarity Cloudy (Clear) Urine pH 5.5 (5-8) Ur Specific [place] >= 1.030 H (1.005-1.025) Urine Protein >=300 H (Neg-Trace) mg/dL Urine Ketones 80 H (Negative) mg/dL Urine Blood Small H (Negative) Urine Nitrite Positive H (Negative) Urine Bilirubin Moderate H (Negative) Urine Urobilinogen 0.2 (Up to 0.2) mg/dL Ur Leukocyte Esterase Negative (Negative) Urine RBC Not Applicable Urine WBC Not Applicable Ur Epithelial Cells Not Applicable Urine Crystals Many Amorphous (Negative) HPF Urine Bacteria Not Applicable Urine Mucus Not Applicable Ur Culture Indicated? Yes Urine Glucose Negative (Negative) mg/dL Urine Opiates Screen Negative (Negative) Urine Methadone Screen Negative (Negative) Ur Barbiturates Screen Negative (Negative) Ur Tricyclics Screen Negative (Negative) Ur Amphetamines Screen Negative (Negative) U Benzodiazepines Scrn Negative (Negative) Urine Cocaine Screen Negative (Negative) U Cannabinoids Screen Negative (Negative) 09/11/25 14:10 Blood Culture - Pending Blood 09/11/25 14:21 Blood Culture - Pending Blood 09/11/25 12:20 Urine Culture - Pending Urine - Reflex from Ua Intake and Output - 24 Hour Total 09/11/25 11:34 thru 09/12/25 03:43 Intake Total 2170 Balance 2170 Weight 113.398 kg Intake: IV 2170 Other: Urine Color Yellow Urine Odor Normal Falls Risk Assessment History of Falls No History 09/11/25 17:30 Contributing Factors No Factors 09/11/25 17:30 Ambulatory Aids Independent 09/11/25 17:30 Tubes/Lines None 09/11/25 17:30 Gait Evaluation No gait disturbance 09/11/25 17:30 Cognition No cognitive impairment 09/11/25 17:30 Fall Total Score 0 09/11/25 17:30 Level of Risk Standard/Low Risk 09/11/25 17:30 Problems (Updated 09/11/25 @ 21:07 by Anthony Hussein MD) Hypovolemia dehydration (Acute) Abnormal urinalysis (Acute) Enteritis (Acute) Attestation Statement: By documenting the first initial, last name, and credentials of the reporting nurse below, both parties acknowledge that all relevant information regarding the patient handoff has been communicated, and that all questions have been addressed to ensure continuity and safety of care. Additional Patient Information/Comments: All questions answered. Report Received From: reprot received from JAZMYN Ortiz @ [id number] on 09/11/2025
[2025-09-12] MEDS: Normal Saline Flush 10 ML SYR IVP (09:31)
--- NOTE | 2025-09-12 11:50 | DSE_ITS ---
Date of service: 09/12/25 Time of Service: 08:00 DS: Diagnosis Discharge Diagnosis (1) Hypovolemia dehydration: Status: Acute (2) Enteritis: Status: Acute (3) Abnormal urinalysis: Status: Acute Discharge Plan Disposition Patient Disposition: Home Anticipated Discharge Date/Time: 09/12/25 11:47 Condition: Good Discharge Details Reason For Visit: Nausea Vomiting Admit Date/Time: 09/11/25 16:53 Admit Provider: Anthony Hussein Attending Provider: Anthony Hussein Primary Care Provider: Margarita Mast Hospital Course Hospital Course: Duran Cerda is a 25 year old man presenting September 11 after 12 hours of nausea and vomiting. He has been unable to tolerate any PO intake on day of presentation. He has abdominal pain that is above the navel, hurts when he vomits. He does not recall being around anyone who is sick. No chest pain, no SOB. In the ED he was tachycardic HR 129, vitals otherwise unremarkable. EKG with sinus tachycardia. CT abdomen/pelvis showing hepatic steatosis and mild splenomegaly, likely enteritis, absent appendix. CXR without pulmonary disease, stomach is distended. Neutrophilic leukocytosis 13.46. Lactic acidosis 3.1. Elevated glucose 155. Elevated bilirubin, predominantly indirect. Urine with heavy protein, ketones, nitrites, sent for culture. He was given anti-emetics and non-narcotic pain medicine, IV fluids, and started on ceftriaxone. PMH includes obesity BMI 41.6. Overnight patient improved dramatically. More likely viral gastroenteritis than bacterial, unlikely UTI. Discharging with instructions to stay hydrated, expect a possible 2nd wave of symptoms. Home Meds and New Rx's Prescriptions: No Action No Known Home Meds Discharge Instructions Instructions: Viral gastroenteritis in adults Stand Alone Forms: Portal Information, Nursing Discharge Form Referrals: Margarita Mast [Primary Care Provider, Medicine] Referral Note: Your PCP will reach out, if you do not hear from them please call Activity:: Activity as Tolerated Equipment/Supplies:: No Equipment Needed Diet:: As Tolerated Discharge Orders Discharge Orders: Discharge Order (Routine); Ordered 09/12/25 Ordered By: Anthony Hussein Discharge Data Discharge Date/Time-TO BE ENTERED AT DEPARTURE: 09/12/25 13:14 DS: Summary Time Spent with Patient providing and/or coordinating discharge services: Less than 30 minutes Status at Discharge Functional status at discharge: independent ambulation Overall status at discharge: patient is progressing back to baseline Mental Status: mental status grossly normal Speech and Movement: speech and movement normal Mood: congruent mood Affect: normal affect Quality:SDOH Health Related Social Needs: Health related social needs lonely/isolated Health related social needs details just like answered above, rarely feels lonely or isolated from those around him Health related social needs details: just like answered above, rarely feels lonely or isolated from those around him Exam Narrative Exam Narrative: General: This is a pleasant, obese man in no distress HEENT: Normocephalic, atraumatic CV: RRR Resp: CTAB Abd: severe pain with any upper abdomen palpation, no CVAT MSK: voluntary motion x4 Neuro: awake, alert, no focal deficits Psych Mental Status: mental status grossly normal Speech and Movement: speech and movement normal Mood: congruent mood Affect: normal affect DS: Data Vitals/I&O Vitals and I&O: Vital Signs Temperature 36.6 C 09/12/25 07:39 Temperature Source Temporal Artery Scan 09/12/25 07:39 Pulse 84 09/12/25 07:39 Pulse Rhythm Regular 09/11/25 17:30 Respiratory Rate 17 09/12/25 07:39 Respiratory Effort Normal 09/11/25 17:30 Respiratory Depth Normal 09/11/25 17:30 Respiratory Pattern Normal 09/11/25 17:30 Blood Pressure 128/75 09/12/25 07:39 Blood Pressure Mean 92 09/12/25 07:39 Blood Pressure Position Sitting 09/11/25 12:15 Pulse Oximetry 98 09/12/25 07:39 Oxygen Delivery Method Room Air 09/12/25 07:39 Oxygen Flow Rate 0 09/12/25 07:39 Pain Level 0 09/12/25 07:39 Intake & Output 09/11/25 09/11/25 09/12/25 11:59 23:59 11:59 Intake Total 1170 / 1170 1360 / 1360 Balance 1170 / 1170 1360 / 1360 Weight 113.398 kg Intake: IV 1170 / 1170 1000 / 1000 Oral 360 / 360 Other: Urine Color Yellow Urine Odor Normal Data Completed and Pending Pending Labs at Discharge: 09/11/25 09/11/25 09/11/25 12:20 13:50 14:21 WBC 13.46 H RBC 5.96 H Hgb 17.5 Hct 51.8 H MCV 87 MCH 29.4 MCHC 33.8 RDW 12.5 Plt Count 163 MPV 11.6 H Immature Gran % 0.3 Neutrophils % 93.7 Lymphocytes % 1.7 Monocytes % 4.0 Eosinophils % 0.1 Basophils % 0.2 Nucleated RBC % 0.0 Absolute Neutrophils 12.61 H Absolute Lymphocytes 0.23 L Absolute Monocytes 0.54 Absolute Eosinophils 0.01 Absolute Basophils 0.03 VBG Lactate Cancelled 3.1 H* Sodium Cancelled 139 Potassium Cancelled 4.1 Chloride Cancelled 105 Carbon Dioxide Cancelled 23.9 Anion Gap Cancelled 10.1 BUN Cancelled 16 Creatinine Cancelled 0.91 Est GFR (CKD-EPI 2020) Cancelled 101.84 Glucose Cancelled 155 H Calcium Cancelled 9.9 Magnesium Cancelled 1.6 Total Bilirubin Cancelled 2.2 H Conjugated Bilirubin 0.7 H AST Cancelled 31 ALT Cancelled 57 H Alkaline Phosphatase Cancelled 86 Troponin I Cancelled < 3 Total Protein Cancelled 8.7 H Albumin Cancelled 5.0 Lipase Cancelled 30 Urine Color [place] Urine Clarity Cloudy Urine pH 5.5 Ur Specific [place] >= 1.030 H Urine Protein >=300 H Urine Ketones 80 H Urine Blood Small H Urine Nitrite Positive H Urine Bilirubin Moderate H Urine Urobilinogen 0.2 Ur Leukocyte Esterase Negative Urine RBC Not Applicable Urine WBC Not Applicable Ur Epithelial Cells Not Applicable Urine Crystals Many Amorphous Urine Bacteria Not Applicable Urine Mucus Not Applicable Ur Culture Indicated? Yes Urine Glucose Negative Urine Opiates Screen Negative Urine Methadone Screen Negative Ur Barbiturates Screen Negative Ur Tricyclics Screen Negative Ur Amphetamines Screen Negative U Benzodiazepines Scrn Negative Urine Cocaine Screen Negative U Cannabinoids Screen Negative 09/12/25 06:23 WBC 6.71 RBC 5.16 Hgb 14.7 D Hct 44.7 MCV 87 MCH 28.5 MCHC 32.9 RDW 12.6 Plt Count 175 MPV 10.5 Immature Gran % 0.4 Neutrophils % 73.1 Lymphocytes % 14.5 Monocytes % 10.9 Eosinophils % 0.7 Basophils % 0.4 Nucleated RBC % 0.0 Absolute Neutrophils 4.90 Absolute Lymphocytes 0.97 L Absolute Monocytes 0.73 Absolute Eosinophils 0.05 Absolute Basophils 0.03 VBG Lactate Sodium 141 Potassium 3.5 Chloride 106 Carbon Dioxide 27.4 Anion Gap 7.6 BUN 12 Creatinine 0.93 Est GFR (CKD-EPI 2020) 99.31 Glucose 82 Calcium 8.8 Magnesium 1.7 Total Bilirubin 1.8 H Conjugated Bilirubin AST 27 ALT 42 Alkaline Phosphatase 69 Troponin I Total Protein 7.3 Albumin 4.2 Lipase Urine Color Urine Clarity Urine pH Ur Specific [place] Urine Protein Urine Ketones Urine Blood Urine Nitrite Urine Bilirubin Urine Urobilinogen Ur Leukocyte Esterase Urine RBC Urine WBC Ur Epithelial Cells Urine Crystals Urine Bacteria Urine Mucus Ur Culture Indicated? Urine Glucose Urine Opiates Screen Urine Methadone Screen Ur Barbiturates Screen Ur Tricyclics Screen Ur Amphetamines Screen U Benzodiazepines Scrn Urine Cocaine Screen U Cannabinoids Screen Preliminary micro results at discharge 09/11/25 12:20 Urine - Reflex from Ua Urine Culture - Preliminary Gram positive marlon, mixed 09/11/25 14:10 Blood Blood Culture - Pending 09/11/25 14:21 Blood Blood Culture - Pending [facility] All Active Problems (Updated 09/11/25 @ 21:07 by Anthony Hussein MD) Hypovolemia dehydration (Acute) Abnormal urinalysis (Acute) Enteritis (Acute) Urinary tract infection (Acute) Sepsis (Acute) Esotropia (Acute) followed by optometry r eye 11/04 Healthy adult (Acute) Allergic rhinitis (Acute) Surgical History Appendectomy Family History Mother Healthy adult on routine physical examination Essential hypertension Father Diabetes Essential hypertension Heart disease Hyperlipidemia Other Essential hypertension MGM Hyperlipidemia MGM Myocardial infarction MGF Neoplasm maternal side Asthma maternal side, MGGF Social History Smoking/Tobacco Use Status: Never Second Hand Exposure: Yes (MOM'S BOYFRIEND) Smoking risk assessment performed?: Yes Alcohol Intake: current Alcohol Intake frequency: a few times a week Alcohol type: beer Drug use: Never Substance use type: does not use Household members: family and other Details: MOM AND HER BOYFRIEND, BOYFRIENDS DAUGHTER AND HER KIDS Housing: apartment Pets and animals: Yes Pets and animals: dog(s), iguana(s) and other Details: DUCKS, GEESE Do you feel safe at home: Yes Do you feel safe in your relationship?: Yes Time Spent with Patient Time Spent with Patient: 45-69 minutes Time was spent: preparing to see the patient(eg.review tests), obtaining and/or reviewing separately otained hiistory, ordering medications,tests, procedures, referring, communicating with other health technical healthcare consultant, indepentently interpreting results, counseling the patient and care coordination
--- NOTE | 2025-09-12 13:25 | PDOC.CMIN ---
Date of service: 09/12/25 Time of Service: 13:26 Care Management Initial Assmt Initial Assessment Reason for Hospitalization: Nausea, Vomiting Functional Status/Living Situation Patient Presentation: Duran was sitting up in bed when CM met with him. He was pleasant and engaged well in conversation. Duran lives in [place] and works at [employer]. He stated that he no longer has ROSEMARY, but he has not taken the time to sign up for benefits at work, leaving him uninsured. CM sent a referral to [employer] to help support him with obtaining insurance, and provided a patient assistance packet as well. Duran is independent and does not anticipate the need for additional community supports upon discharge. Per MD, he will be discharged today. He stated that his mother will transport him home. CM will continue to follow. Town of Residence: [place] Resides with: Parent Significant Other/Family: Local Natural Supports: Mother Employment Status: Employed Instrumental Activities of Daily Living (ADLs): Independent Medications Medication Management: No Issues/Barriers identified Advance Directives Advance Directives: Do you have an Advance Directive: N 03/21/13, 14:[address] File [address] [facility]: N 03/21/13, 14:08 Date Asked 09/11/25 09/11/25, 15:55 AD Date Reviewed COLST On File at [facility] No 05/15/24, 22:20 COLST Date Scanned Insurance Coverage/Financial Issues Insurance: Self Pay [employer] referral sent Patient assistance packet provided Care Team Visit Care Team Role Provider Type Margarita Mast Primary Care Provider ADV PRACTICE REGISTERED NURSE RUPERTO Blank Emergency Provider [employer] MANAGEMENT AND BUDGET ANALYST Anthony Hussein MD Admit Provider [facility] STAFF PHYSICIAN Attending Provider Discharge Potential Discharge Needs: PCP F/U Appt Anticipated Barriers to Discharge: None Identified Patient/Family Education Needs: Review discharge instructions, discuss Ask Me Three Transportation: Private vehicle Plan: Anticipate Duran will return home when medically cleared. His mother will transport him home via private vehicle. He will follow up with his PCP and discharge plan of care. CM will continue to follow. Social Determinants of Health Screening Social Determinants of health last assessed in clinic: 09/12/25 Will the Patient Participate in the Screening?: Yes Do you worry about having a steady place to live?: no Problems where you live: no known problems In the past 12 months, have you had to go without electric, gas, oil or water in your home?: no 1. Within the past 12 months, we worried whether our food would run out before we got money to buy more.: Don't know/refused 2. Within the past 12 months, the food we bought just didn't last and we didn't have money to get more.: Don't know/refused Has lack of transportation kept you from medical appointments or from doing things needed for daily living?: no Has anyone in your life made you feel unsafe or unsupported?: no How hard is it for you to pay for the very basics like food, housing, medical care, and heating? Would you say it is:: Not hard at all Do you want help finding or keeping work or a job?: I do not need or want help If for any reason you need help with day-to-day activities such as bathing, preparing meals, shopping, managing finances, etc., do you get the help you need?: I don?t need any help How often do you feel lonely or isolated from those around you?: Rarely Do you speak a language other than Croatian at home?: No Does the patient want assistance with any of the above?: No Health Related Social Needs Health related social needs: feeling lonely/isolated (Z60.8) Health related social needs details: just like answered above, rarely feels lonely or isolated from those around him PFSH All Active Problems (Updated 09/11/25 @ 21:07 by Anthony Hussein MD) Hypovolemia dehydration (Acute) Abnormal urinalysis (Acute) Enteritis (Acute) Urinary tract infection (Acute) Sepsis (Acute) Esotropia (Acute) followed by optometry r eye 2/20 Healthy adult (Acute) Allergic rhinitis (Acute) Surgical History Appendectomy Family History Mother Healthy adult on routine physical examination Essential hypertension Father Diabetes Essential hypertension Heart disease Hyperlipidemia Other Essential hypertension MGM Hyperlipidemia MGM Myocardial infarction MGF Neoplasm maternal side Asthma maternal side, MGGF Social History Smoking/Tobacco Use Status: Never Second Hand Exposure: Yes (MOM'S BOYFRIEND) Smoking risk assessment performed?: Yes Alcohol Intake: current Alcohol Intake frequency: a few times a week Alcohol type: beer Drug use: Never Substance use type: does not use Household members: family and other Details: MOM AND HER BOYFRIEND, BOYFRIENDS DAUGHTER AND HER KIDS Housing: apartment Pets and animals: Yes Pets and animals: dog(s), iguana(s) and other Details: DUCKS, GEESE Do you feel safe at home: Yes Do you feel safe in your relationship?: Yes
--- NOTE | 2025-09-12 18:22 | PDOC.CMDIS ---
Date of service: 09/12/25 Time of Service: 18:22 LACE Index Scoring Tool Questions: Length of Stay (in days): 1 Was the patient admitted via the E.D.?: Yes E.D. Visits: 0 Answers: Total Score: 4 Risk of Readmission: Low Risk Care Management Discharge Plan Reason for Hospitalization: Nausea, Vomiting Discharge Plan: Duran returned home today with no new services. His mother drove him home via private vehicle. He will follow up with his PCP and discharge plan of care. He was happy to be going home. Patient/Family Education Needs: Review discharge instructions and limitations, discussion of self care needs including ask me three. SDOH Health Related Social Needs: Health related social needs lonely/isolated Health related social needs details just like answered above, rarely feels lonely or isolated from those around him Health related social needs details: just like answered above, rarely feels lonely or isolated from those around him
== END 2025-09-12 13:14 | disposition home or self-care (01) ==
LOC: ER 16:40 → MS 17:23
PROVIDERS: Admitting Provider Family Medicine; Emergency Provider Physician Assistant; PCP Nurse Practitioner Family; Responsible Provider Family Medicine; Visit Provider Family Medicine
DX: K52.9 Noninfective gastroenteritis and colitis, unspecified (principal); E86.0 Dehydration; E86.1 Hypovolemia; R82.90 Unspecified abnormal findings in urine; R11.2 Nausea with vomiting, unspecified; R00.0 Tachycardia, unspecified; K76.0 Fatty (change of) liver, not elsewhere classified; R16.1 Splenomegaly, not elsewhere classified; E87.20 Acidosis, unspecified; D72.829 Elevated white blood cell count, unspecified; R73.9 Hyperglycemia, unspecified; E66.9 Obesity, unspecified; Z68.41 Body mass index [BMI] 40.0-44.9, adult
CPT/HCPCS: 00123; 36415; 80053; 80307; 83690; 87040; 93005; 96365; 96366; 96367; 96375; 99285; 71046; 74177; 81003; 81015; 82248; 83605; 83735; 84484; 85025; 87086; 93010; 99222; 99239; G0378; J0131; J0696; J1885; J2405; J3490